=== PATIENT | male | born 1995 | race African-American/Black ===

== ENCOUNTER 2020-09-07 14:06 | Emergency (ER) | payer MEDICAID ==
[~2020-09-07] VITALS: Ht 177.8 cm; Wt 66.2 kg
[2020-09-07 14:13] VITALS: BP 157/113
[2020-09-07 14:51] LABS: BILIRUBIN,URINE Negative (NEGATIVE); COLOR,URINE DARK YELLOW (YELLOW); LEUKOCYTE ESTERASE ,URINE Negative (NEGATIVE); NITRITE, URINE Negative (NEGATIVE); PH,URINE 8.5 (5.0-8.0); PROTEIN,URINE Trace mg/dl (NEGATIVE); UGLUCOSE Negative (NEGATIVE); UROBILINOGEN,URINE 0.2 EU/dL (0.2)
[2020-09-07] MEDS ORDERED: LORAZEPAM 1 MG TABLET PO ONE (15:00)
[2020-09-07 15:01] LABS: BACTERIA,URINE Few /HPF (None Seen); HYALINE CASTS, URINE Few /LPF (None Seen); RBC,URINE 0-2 /HPF (0-2); SQUAMOUS EPITHELIAL CELL,UR Few /HPF (None Seen); WBC,URINE 0-2 /HPF (0-3)
[2020-09-07] MEDS ORDERED: LORAZEPAM 1 MG TABLET ONE (15:06)
--- NOTE | 2020-09-07 15:23 | NUR ---
PATIENT REFUSING BLOOD WORKS, TOO RESTLESS.
--- NOTE | 2020-09-07 16:17 | NUR ---
SW consult requested for Homelessness & drug use. SW attempted to interview pt. However, pt. is very restless. Pt. appears unkempt. Pt. is A&O x 2. Pt. unable to verbalize answers. [facility] spoke with nurse, Romeo who stated pt. has been given Ativan. Plan: [facility] placed homeless resources & Homeless Waiver in the pt.'s discharge folder in chart. Nursing to follow up with this paperwork when discharge planning has commenced.
--- NOTE | 2020-09-07 16:42 | NUR ---
SEEN BY [facility], BUT PATIENT IS UNCOOPERATIVE AND TOO RESTLESS AT THIS TIME TO HAVE A CONVERSATION.
[2020-09-07 17:09] LABS: BASOPHILS % (AUTO) 0.6 % (0.0-2.0); EOSINOPHILS % (AUTO) 0.1 % (0.0-6.0); HEMATOCRIT 41 % (39-51); LYMPHOCYTES # (AUTO) 0.5 /CMM (0.8-4.8); LYMPHOCYTES % (AUTO) 6.1 % (20.0-44.0); MEAN CORPUSCULAR HGB CONC 34 g/dl (31.0-36.0); MEAN CORPUSCULAR VOLUME 96 fL (80-96); MONOCYTES # (AUTO) 0.5 /CMM (0.1-1.30); MONOCYTES % (AUTO) 5.6 % (2.0-12.0); NEUTROPHILS # (AUTO) 7.5 /CMM (1.8-8.9); NEUTROPHILS % (AUTO) 87.6 % (43.0-81.0); PLATELET COUNT (AUTO) 264 /CMM (150-450); RED BLOOD CELL COUNT(AUTO) 4.28 MIL/uL (4.5-6.0); WHITE BLOOD COUNT (AUTO) 8.5 K/uL (4.3-11.0)
[2020-09-07 17:28] LABS: ACETAMINOPHEN < 10 ug/ml (10-30); ALANINE AMINOTRANSFERASE 24 U/L (12-78); ALBUMIN 4.2 g/dL (3.4-5.0); ALCOHOL, BLOOD < 3 mg/dL (0-0); ALKALINE PHOSPHATASE 82 U/L (46-116); ASPARTATE AMINOTRANSFERASE 21 U/L (15-37); BILIRUBIN,DIRECT 0.1 mg/dL (0.0-0.2); BILIRUBIN,TOTAL 0.6 mg/dL (0.2-1.0); CALCIUM, SERUM 9.3 mg/dL (8.5-10.1); CARBON DIOXIDE 23 mmol/L (21-32); CHLORIDE 102 mmol/L (98-107); CREATININE 1.4 mg/dL (0.6-1.3); GLUCOSE 89 mg/dL (74-106); POTASSIUM 3.6 mmol/L (3.5-5.1); SODIUM SERUM 137 mmol/L (136-145); TOTAL PROTEIN, SERUM 7.5 g/dL (6.4-8.2); UREA NITROGEN, BLOOD 11 mg/dL (7-18)
--- NOTE | 2020-09-07 19:52 | NUR ---
Patient eloped from facility. ER MD notified.
== END 2020-09-07 19:59 | disposition left against medical advice (07) ==
LOC: ER 14:13
DX: F29 Unspecified psychosis not due to a substance or known physiological condition (principal); F19.10 Other psychoactive substance abuse, uncomplicated; R94.31 Abnormal electrocardiogram [ECG] [EKG]; Z60.2 Problems related to living alone
CPT/HCPCS: 36415; 80048-TC; 80076-TC; 81001; 84484-TC; 85025-TC; G0480